=== PATIENT | female | born 1970 ===

== ENCOUNTER 2016-07-18 13:27 | Emergency (ER) | payer OTHER ==
--- NOTE | 2016-07-27 09:43 | ER ---
ADMIT: 07/18/2016 RM/LOC: ER [facility] MR#: [id number] [facility] [id number] [place] [id number] [facility] [address] [place] [address] Emergency Room Report SEX: F AGE: 45 : 1970 DATE: 07/18/2016 ADDENDUM: CHIEF COMPLAINT: Laceration to left finger. HISTORY OF PRESENT ILLNESS: This is a 45-year-old, who was cutting meat at work . She cut her left proximal part of her finger. A suture repair was done here in the emergency room. Please see the T-sheet for the procedure note. CLINICAL IMPRESSION: Laceration to the left 2nd finger. DYLON Gupta / Irineo Romeo MD / bellal JOB #: [id number] CC: Irineo Romeo MD, Attending Physician UNKNOWN, Family Physician
== END 2016-07-18 15:40 | disposition home or self-care (01) ==
LOC: ER 13:27
PROC: 0HQGXZZ Repair Left Hand Skin, External Approach (ICD-10-PCS; principal; 2016-07-18)
DX: S61.211A Laceration without foreign body of left index finger without damage to nail, initial encounter (principal); W26.0XXA Contact with knife, initial encounter; Y92.69 Other specified industrial and construction area as the place of occurrence of the external cause